=== PATIENT | female | born 1960 | race Caucasian/White ===

== ENCOUNTER 2021-01-02 15:15 | Observation (INO) | payer MEDICARE, MEDICAID, SELFPAY ==
[2021-01-02] VITALS (11 sets, daily range): BP systolic 108–154; BP diastolic 65–93; PULSE 72–98; RESP 16–20; TEMP 36.6–37.1; O2SAT 94–97; BMI 31.2; BMI 31.4
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
--- NOTE | 2021-01-02 16:19 | XR_ITS ---
WS: [id number] Portable AP upright chest, 01/02/2021 Clinical Data: chest pain Comparison: PA chest, 03/21/2011. Findings: No nodules, masses or effusions are seen. The heart is normal. The pulmonary vascularity is not increased. No pneumonia or pneumothorax is seen. There is minimal left apical scarring. Monitor leads are on the chest wall. Impression: Negative chest.
--- NOTE | 2021-01-02 16:40 | PC.NURSE ---
attempted IV x2. a second RN Mike attempted x 2 also without success. Club Concierge called to have ultrasound guided IV placed.
--- NOTE | 2021-01-02 16:41 | PC.NURSE ---
physician aware of no IV access at this time.
[2021-01-02 17:43] LABS: Basophils % 0.4 %; Eosinophils # 0.1 10^3/uL (0.0-0.8); Eosinophils % 0.6 %; Hematocrit 44.4 % (37.0-47.0); Lymphocytes # 2.6 10^3/uL (0.8-4.8); Lymphocytes % 26.3 %; Mean Corpuscular HGB Conc 31.5 g/dL (30.0-36.0); Mean Corpuscular Hemoglobin 27.6 pg (28.0-34.0); Mean Corpuscular Volume 87.4 fl (81-99); Mean Platelet Volume 9.8 fL (7.4-10.4); Monocytes # 0.6 10^3/uL (0.2-0.9); Monocytes % 5.9 %; Neutrophils # 6.49 10^3/uL (1.8-7.7); Neutrophils % 66.5 %; Nucleated Red Blood Cells % 0 %; Platelet Count 373 10^3/cmm (130-400); Red Blood Count 5.08 10^6/uL (4.1-5.3); White Blood Count 9.8 10^3/uL (4.0-10.0)
--- NOTE | 2021-01-02 18:00 | PC.NURSE ---
Dr Grullon and Optical Coating Technician in pt room; inserted ultrasound guided IV 18g to left upper arm
[2021-01-02 18:13] LABS: Troponin(5th) Baseline 7 ng/L (0-10)
--- NOTE | 2021-01-02 18:19 | ECG_ITS ---
[facility] Test Date: 2021-01-02 Pat Name: Sherita Chen Department: Room: Gender: Female Piercer: : 1960 Requested By: Salvatore Nelson Order Number: [id number] Santos MD: Suzanna Costello M.D. Measurements Intervals [place] Rate: 79 P: 65 ME: 132 QRS: 56 QRSD: 78 T: 65 QT: 399 QTc: 460 Interpretive Statements SINUS RHYTHM MINIMAL ST DEPRESSION [0.025+ mV ST DEPRESSION] Compared to ECG 01/02/2021 15:45:08 ST (T wave) deviation now present Sinus tachycardia no longer present Electronically Signed On 01-02-2021 19:46:14 CDT by Suzanna Costello M.D. [id number]
[2021-01-02 18:22] LABS: Alanine Aminotransferase 33 U/L (0-33); Albumin Level 3.9 g/dL (3.5-5.2); Alkaline Phosphatase 177 IU/L (35-105); Anion Gap 17.2 (5-19); Aspartate Amino Transferase 26 U/L (0-32); Blood Urea Nitrogen 9 mg/dL (8-23); Calcium 9.2 mg/dL (8.5-10.5); Carbon Dioxide 21 mmol/L (22-29); Chloride 103 mmol/L (98-107); Creatinine Clr Calc Pharmacy 86.4509; Globulin 2.8 g/dL (1.3-4.6); Glomerular Filtration Rate 101.3 mL/min (90-130); Glucose 86 mg/dL (65-115); Lipase 33 U/L (13-60); NT Pro B Type Natriuretic Pept 43 pg/mL (0-125); Osmolality Calculated 282 mOsm/kg (285-295); Potassium 4.2 mmol/L (3.5-5.1); Sodium 137 mmol/L (136-145); Total Bilirubin 0.2 mg/dL (0.15-1.2); Total Protein 6.7 g/dL (6.6-8.7)
--- NOTE | 2021-01-02 18:41 | PC.NURSE ---
patient has already taken 324mg asa today
[2021-01-02 19:57] LABS: Troponin 5 2HR 8.24 ng/L (0-10); Troponin 5 2HR Delta 1.24 ABS# (0-10)
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
[2021-01-02] MEDS: fentaNYL 50 mcg/mL INJ 2mL IVP (21:13)
[2021-01-02] MEDS: nitroglycerin 0.4 mg sublingual Tablet SUBLINGUAL (21:14)
--- NOTE | 2021-01-02 21:40 | PC.NURSE ---
2nd Nitro given. pt pain went down to 4 then back up again to 7.
--- NOTE | 2021-01-02 21:47 | PC.NURSE ---
report to Hope CORTEZ
--- NOTE | 2021-01-02 21:52 | PC.NURSE ---
patient improved with 2nd Nitro. states her pain is down to 2
--- NOTE | 2021-01-02 22:19 | ECG_ITS ---
[facility] Test Date: 2021-01-02 Pat Name: Sherita Chen Department: Room: Gender: Female Presser All Around: : 1960 Requested By: Salvatore Nelson Order Number: [id number] Santos MD: Suzanna Costello M.D. Measurements Intervals [place] Rate: 101 P: 66 [place]: 127 QRS: 36 QRSD: 85 T: 55 QT: 346 QTc: 450 Interpretive Statements SINUS TACHYCARDIA POSSIBLE LEFT ATRIAL ENLARGEMENT [-0.1mV P WAVE IN V1/V2] ABNORMAL RHYTHM ECG No previous ECG available for comparison Electronically Signed On 01-02-2021 19:44:24 CDT by Suzanna Costello M.D. [id number]
[2021-01-02] MEDS: enoxaparin 40 mg/0.4 mL Syringe SUBCUT (23:39)
[2021-01-02] MEDS: gabapentin 400 mg Capsule 800 MG PO (23:40)
[2021-01-02] MEDS: D5-NS 0.45% + KCL 20 mEq 20 MEQ/1,000 ML BAG 75 MEQ IV (23:43)
[2021-01-03] VITALS (11 sets, daily range): BP systolic 104–132; BP diastolic 67–86; PULSE 71–89; RESP 13–18; TEMP 36.6–37; O2SAT 92–96
--- NOTE | 2021-01-03 00:26 | PC.ADMIT ---
[id number] [facility] Admission Note: The patient,Sherita Chen,60 y/o, was given written information regarding hospital policies, unit procedures and contact persons. Patient's smoking status: . Vital Signs - 8 hr 01/02/21 17:30 01/02/21 20:40 01/02/21 21:13 Temperature Pulse Rate 86 85 Respiratory Rate 16 18 20 H Blood Pressure 126/80 154/93 Pulse Oximetry 95 96 97 01/02/21 21:14 01/02/21 21:30 01/02/21 21:53 Temperature Pulse Rate 96 92 92 Respiratory Rate 20 H 18 18 Blood Pressure 138/87 128/90 120/65 Pulse Oximetry 97 96 97 01/02/21 22:00 01/02/21 22:21 01/02/21 23:30 Temperature 98 F 98 F Pulse Rate 74 80 72 Respiratory Rate 17 17 Blood Pressure 108/71 132/73 Pulse Oximetry 94 94 01/03/21 00:22 Temperature Pulse Rate 77 Respiratory Rate Blood Pressure Pulse Oximetry 94
[2021-01-03 05:38] LABS: INR 1.09 (0.8-1.2)
[2021-01-03 05:39] LABS: Partial Thromboplastin Time 36.9 SECONDS (23.9-36.7)
--- NOTE | 2021-01-03 06:00 | USCV_ITS ---
Gustavo Sherita Age: 60 Gender: F : 1960 Exam Date: 01/03/2021 06:56 Ordering Phys: Richelle Zee MD Technologist: Exam Location: [facility] Indication: SOB BP: 114 / 67 HR: 66 Rhythm: Sinus Technical Quality: Adequate MEASUREMENTS (Male / Female) Normal Values 2D ECHO LV Diastolic Diameter PLAX 4.0 cm 4.2 - 5.9 / 3.9 - 5.3 cm LV Systolic Diameter PLAX 2.2 cm IVS Diastolic Thickness 1.1 cm 0.6 - 1.0 / 0.6 - 0.9 cm IVS Systolic Thickness 1.4 cm LVPW Diastolic Thickness 1.3 cm 0.6 - 1.0 / 0.6 - 0.9 cm LVPW Systolic Thickness 0.8 cm LVOT Diameter 2.0 cm LV Ejection Fraction 2D Teich 77.7 % LV Ejection Fraction MOD 2C 60.9 % LV Ejection Fraction 2C AL 61.8 % LA Diameter 3.3 cm LA Width 3.1 cm LA Height 4.5 cm RA Width 3.8 cm RA Height 3.7 cm DOPPLER AV Peak Velocity 103.0 cm/s LVOT Peak Velocity 83.0 cm/s AV Area Cont Eq vti 2.8 cm squared AV Area Cont Eq pk 2.6 cm squared MV Area PHT 5.0 cm squared Mitral E to A Ratio 0.8 MV E' Velocity 40.0 cm/s Mitral E to MV E' Ratio 12.1 Mitral E to LV E' Lateral Ratio 10.6 Mitral E to LV E' Septal Ratio 14.6 TR Peak Velocity 96.0 cm/s TR Peak Gradient 3.7 mmHg TV Peak E Velocity 51.0 cm/s Right Atrial Pressure 3.0 mmHg Pulmonary Artery Systolic Pressu 6.7 mmHg FINDINGS Left Ventricle Normal left ventricular cavity size. Normal left ventricular systolic function. No regional wall motion abnormalities. Left ventricular ejection fraction is estimated at 60 %. Grade I/IV diastolic dysfunction (abnormal relaxation filling pattern), normal to mildly elevated filling pressures. Right Ventricle The right ventricle is normal in size and function. Right Atrium The right atrium is normal in size. Left Atrium The left atrium is normal in size. Mitral Valve Structurally normal mitral valve without significant stenosis or prolapse. There is no mitral regurgitation. Aortic Valve Moderate aortic valve calcification. No aortic valve stenosis. No aortic valve regurgitation. Tricuspid Valve Mild tricuspid valve regurgitation. Pulmonic Valve Structurally normal pulmonic valve without significant stenosis. There is no pulmonic regurgitation. Pericardium Normal pericardium without effusion. Aorta Normal ascending aorta dimension. CONCLUSIONS 1-Normal left ventricular cavity size. Normal left ventricular systolic function. No regional wall motion abnormalities. Left ventricular ejection fraction is estimated at 60 %. Grade I/IV diastolic dysfunction (abnormal relaxation filling pattern), normal to mildly elevated filling pressures. 2-Moderate aortic valve calcification. No aortic valve stenosis. No aortic valve regurgitation. 3-There is no pericardial effusion. 4-Pulmonary artery systolic pressure is within normal limits. 5-Right atrial pressure is around 5 mm of mercury. 6-There are no prior echocardiogram studies to compare. Melissa Quijano MD (Electronically Signed) Final Date: 03 January 2021 19:02 S
--- NOTE | 2021-01-03 06:00 | ECG_ITS ---
[facility] Test Date: 2021-01-03 Pat Name: Sherita Chen Department: Room: 112 Gender: Female Transport Assistant: Chely Ravi : 1960 Requested By: Richelle Zee Order Number: [id number] Santos MD: DANYEL COX Interpretive Statements NAME OF STUDY: LEXISCAN SESTAMIBI STRESS TEST INDICATION: Chest Pain, NOTE: Please note that this is the electrocardiogram portion of the Lexiscan/Sestamibi stress test. The perfusion scan will be documented separately. DATA: Baseline heart rate was 75 beats per minute. Baseline blood pressure was 117/89 millimeters of mercury. Target heart rate was 158. Maximum heart rate achieved was 113. which was 71 % of the predicted target heart rate. Maximum blood pressure was 120/69 millimeters of mercury. The reason for ending the test was completion of the protocol. The patient did not experience any symptoms. ELECTROCARDIOGRAM: BASELINE: Sinus rhythm. Normal axis. Otherwise, no ST-T changes suggestive of ischemia noted. No arrhythmia noted. EXERCISE: After Lexiscan injection, no ST-T changes suggestive of ischemic noted. No arrhythmia noted. CONCLUSION: Please note due to baseline abnormality of the EKG specificity and sensitivity of the EKG portion of LexiScan MIBI stress test will be low 1. EKG not suggestive of ischemia 2. Lexiscan injection unremarkable. 3. Perfusion scan will be documented separately. Electronically Signed On 01-22-2021 19:08:09 CDT by DANYEL COX [id number]
[2021-01-03 06:02] LABS: Chol HDL Ratio 4.29 mg/dL (0.0-4.40); Cholesterol 176 mg/dL (0-200); HDL Cholesterol 41 mg/dL (60-100); LDL Cholesterol Calculated 116 mg/dL (50-129); LDL HDL Ratio 2.83 RATIO (0.00-3.22); NT Pro B Type Natriuretic Pept 21 pg/mL (0-125); Triglycerides 96 mg/dL (0-150)
--- NOTE | 2021-01-03 06:19 | PC.NURSE ---
patient has not had c/o chest pain this shift, patient is in SR, VS WNL.
[2021-01-03] MEDS: regadenoson 0.4 Mg/5 ml Syringe IVP (08:06)
--- NOTE | 2021-01-03 09:40 | ECG_ITS ---
[facility] Test Date: 2021-01-03 Pat Name: Sherita Chen Department: Room: 112 Gender: Female Multimedia Editor: : 1960 Requested By: Jan Munoz Order Number: [id number] Santos MD: Sally Fatima M.D. Measurements Intervals [place] Rate: 77 P: 60 TN: 128 QRS: 30 QRSD: 77 T: 42 QT: 398 QTc: 452 Interpretive Statements SINUS RHYTHM Compared to ECG 01/02/2021 19:06:16 ST (T wave) deviation no longer present Electronically Signed On 01-04-2021 9:04:34 CDT by Sally Fatima M.D. [id number]
[2021-01-03] MEDS: gabapentin 400 mg Capsule 800 MG PO ×3 (09:43→20:47)
[2021-01-03] MEDS: aspirin 81 mg EC Tablet PO (09:43)
[2021-01-03] MEDS: pantoprazole DR 40 mg Tablet PO (09:43)
[2021-01-03] MEDS: BuSPIRONE 10 mg Tablet PO ×2 (09:43→18:03)
[2021-01-03] MEDS: docusate sodium 100 mg Capsule PO ×2 (09:43→18:03)
[2021-01-03] MEDS: lisinopril 20 mg Tablet PO (10:06)
--- NOTE | 2021-01-03 10:27 | PC.NURSE ---
Pt endorsed chest discomfort shortly after physician left room this morning. Pt rates pain at a 6/10. Ekg was obtained and appeared to be normal sinus rhythm. Pt chest pain has subsided now.
--- NOTE | 2021-01-03 10:37 | PC.CHAP ---
Pastoral Care Encounter/Spiritual Assessment Type of Contact [] Declined stone decorator visit [] Patient/Family/Request visit [] Outpatient visit [] Follow-up visit [] Physician referral [] Code/Alert [x] Routine visit [] Staff referral [] Actively dying [] Patient sleeping [] Family support [] [] Out of room [] Palliative care [] [x] Receiving care in room [] Pre-surgical visit [] Trauma [x] Long length of stay [] ICU visit [] Other: Relational/Emotional Strength [x] Patient feels connected with others/family/visitors/staff [] Distress [] Loneliness/isolation [] Abandonment Spirituality of Patient [x] Person of Kimberlee [] Attends Protestant of their Kimberlee [x] Believes in Prayer [] Reads Bible or Faith materials [] There are Spiritual issues to be addressed Phlebotomist Supervisor/Instructor Interventions [x] Prayer [x] Active listening [x] Non-anxious presence [x] Spiritual/emotional support [] Crisis/trauma care [x] Spiritual counseling [] Bereavement support [] Provided bereavement packet [] Provided Bible/devotional materials [] Provided toy/stuffed animal, coloring book to patient or family member [] Provided Communion [] Anointing/Firestone [] Salvation [x] Completed spiritual assessment [] Other: Impact on Illness or Injury [] Angry [] Fearful [xx] Anxious [] Often cries [] Exhaustion [x] Unable to work [] Unable to attend adventist [] Unable to walk/stand [] Unable to read [] Unable to drive [] Unable to eat/drink [] Unable to sleep [] Unable to be with family [] Patient intubated [] Other: Summary pain around heart waiting on tests and dortors report she angie go home and have famuly care at this time and when she goes home Time spent with patient 10 mins
--- NOTE | 2021-01-03 12:39 | P.PN_ITS ---
Subjective Subjective: Interval history: Sherita was admitted last night's. She had no chest discomfort when I talked with her but did shortly after her stress test. I reviewed her history with her and she has chest discomfort she describes as pressure substernal sometimes associated with exertion responsive to nitroglycerin lasting less than 30 minutes. She occasionally has some nausea. She did not have any kind of troponin elevation or significant EKG changes on presentation. Medications: Reviewed: Yes Vitals/I&O/Wt Last Vital Signs Temp 98.6 F 01/03/21 08:00 Pulse 89 01/03/21 08:07 Resp 15 01/03/21 08:00 BP 104/69 01/03/21 08:07 Pulse Ox 95 01/03/21 08:00 Weight last 48 hrs Weight 71.894 kg Weight 72.892 kg Weight 72.575 kg Physical Exam 2 Narrative: EXAM NARRATIVE: General exam no apparent distress Neck is supple Cardiovascular regular rate and rhythm without murmur Lungs clear Abdomen is soft, positive bowel sounds Extremities no cyanosis clubbing or edema Data : 01/02/21 17:27 01/02/21 17:27 A&P Assessment and plan (1) Chest pain: Concerning for possible angina. She has had some exertional quality, responsive to nitroglycerin. Nuclear stress test has been completed but not yet read. She continued to have some discomfort following the stress test. Cardiology will be consulted for her recurrent discomfort Note the troponins, EKGs were overall benign. Echocardiogram is pending No significant history of recent reflux. Continue aspirin At this point continue ALEXI inhibitor started last week Lovenox for DVT prophylaxis Status: Acute (2) Hypertension: Started on antihypertensive medication in the form of lisinopril last week Status: Chronic (3) Nicotine dependence, cigarettes, with other nicotine-induced disorders: Encourage cessation Status: Acute Additional A&P Information Neuropathy, continue Neurontin History of chronic nausea Fatigue Full code Lovenox for DVT prophylaxis Attestations Medical Necessity Statement*: Needs continued hospitalization, for evaluation of chest discomfort. Coding Level of Care Code Acute Tow Truck Operator for Ashley Hennessy Diagnoses Chest pain R07.9 Hypertension I10 Nicotine dependence, cigarettes, with other nicotine-induced disorders F17.218
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
[2021-01-03] MEDS: clopidogrel 300 mg Tablet PO (18:03)
--- NOTE | 2021-01-03 22:34 | NMCV_ITS ---
NM meme perf SPECT r/s* [id number] Sherita Chen Age: 60 Gender: F : 1960 Exam Date: 01/03/2021 07:11 Ordering Phys: Richelle Zee MD Technologist: SAMEERA Reese Exam Location: [facility] Indications: CHEST PAIN STRESS TEST Please see separate stress test report in [facility] for full findings IMAGE PROTOCOL Rest/Stress 1 Lexiscan Day Radiopharmaceutical Dose (mCi) Administration Site Administered by Rest: Tc-99m 10.9 IV SAMEERA Mcneil Sestamibi Stress:Tc-99m 32.8 IV SAMEERA Mcneil Sestamibi Rest: 03-Jan-2021 60 Discovery 630 Stress: 03-Jan-2021 30 Discovery 630 0.4mg Lexiscan. Images obtained in supine and prone position. SPECT RESULTS Technical Quality: Excellent Raw Data Analysis: Image Corrections: Summed Stress Score: 0 Summed Rest Score: 0 Summed Difference Score: 0 PERFUSION FINDINGS Small area of fixed perfusion defect noted in basal to mid inferior wall on the rest images which improved over stress images suggestive of artifact. Small area of patchy decreased tracer uptake suggestive of reversibility noted in distal and basal inferior and inferolateral wall suggestive of possible ischemia in RCA territory. FUNCTIONAL RESULTS (calculated via Gated SPECT) Stress Image LV EF (%): 66 Stress EDV (mL):70 TID: 1.04 Stress ESV (mL):24 Rest Image LV EF (%): 66 FUNCTIONAL FINDINGS: There is normal left ventricular systolic function. IMPRESSIONS Small area of patchy reversibility noted in basal inferior and inferolateral wall along with somewhat in the distal inferior wall suggestive of possible lesion in the RCA territory. EKG segment will be documented separately. Melissa Quijano MD (Electronically Signed) Final Date: 03 January 2021 13:21 S
[2021-01-04] VITALS (59 sets, daily range): BP systolic 105–129; BP diastolic 60–82; PULSE 72–104; RESP 12–25; O2SAT 88–97
[2021-01-04] MEDS: sodium chloride 0.9% 1,000 ML 50 ML IV (04:19)
[2021-01-04 04:59] LABS: Basophils % 0.5 %; Eosinophils # 0.1 10^3/uL (0.0-0.8); Eosinophils % 1.3 %; Hematocrit 43.8 % (37.0-47.0); Hemoglobin 13.7 g/dL (11.5-15.3); Lymphocytes # 3.2 10^3/uL (0.8-4.8); Mean Corpuscular HGB Conc 31.3 g/dL (30.0-36.0); Mean Corpuscular Hemoglobin 28.7 pg (28.0-34.0); Mean Corpuscular Volume 91.6 fl (81-99); Mean Platelet Volume 9.9 fL (7.4-10.4); Monocytes # 0.6 10^3/uL (0.2-0.9); Monocytes % 6.3 %; Neutrophils # 4.89 10^3/uL (1.8-7.7); Neutrophils % 55.6 %; Nucleated Red Blood Cells % 0 %; Platelet Count 389 10^3/cmm (130-400); Red Blood Count 4.78 10^6/uL (4.1-5.3); White Blood Count 8.8 10^3/uL (4.0-10.0)
[2021-01-04 05:26] LABS: Anion Gap 17.3 (5-19); Blood Urea Nitrogen 14 mg/dL (8-23); Calcium 9.1 mg/dL (8.5-10.5); Carbon Dioxide 20 mmol/L (22-29); Chloride 104 mmol/L (98-107); Glomerular Filtration Rate 84.8 mL/min (90-130); Glucose 105 mg/dL (65-115); Osmolality Calculated 285 mOsm/kg (285-295); Potassium 4.3 mmol/L (3.5-5.1); Sodium 137 mmol/L (136-145)
[2021-01-04] MEDS: diphenhydrAMINE 50 mg Capsule PO (05:47)
--- NOTE | 2021-01-04 07:00 | XACV_ITS ---
Exam Room: [facility] Ht: 152 cm Wt: 72 kg BSA: 1.77 m2 Gender: Female : 1960 Any Known Allergies: Morphine Exam Priority: Routine Procedure(s): Procedure Description: Diagnostic procedure Procedure Description: Left Heart Catheterization Procedure Description: Coronary Angiography Diagnostic Cath Status: Urgent Diagnostic Findings * Left Main has no disease. * Circumflex has no disease. * Right Coronary Artery has no disease. * Proximal Left Anterior Descending to Mid Left Anterior Descending: luminal irregularities 20% stenosis, SHAHLA: 3 flow. * Coronary angiography shows right dominance. Conclusions 1. There is luminal irregularities coronary artery disease with one vessel disease. Recommendations * Continue current medical management and risk factor modification. Pressures Phase:Rest AO : 134 / 37 ( 68 ) @ 6:59:00 AM LV : 127 / -5 / 16 @ 6:58:00 AM Clinical Evaluation EBL: 5mL-10mL Procedural Details Procedure Consent Obtained. Pre-Procedure Time Out. Identified patient by full name and date of as verbalized by the patient/guarantor. Does the consent match the physician's order: Yes. Accurate & Complete Informed Consent: Yes. Inpatient/Outpatient History & Physical on Chart: Yes. If H&P is completed, is and addenduem needed: No. Visualize and Verify Site with Patient/Guarantor: N/A. Relevant Radiology Images available: Yes. The risks, benefits, and alternatives of sedation and/or procedure were discussed by physician. The patient agrees to continue. Procedure started. [facility] Clinical Fraility Score: 3: Managing Well. Human Resources Operations Specialist Indications: ACS > 24 hours. Chest Pain Symptom Assessment: Typical Angina Symptoms. Cardiovascular Instability: No. Correct patient, site and procedure confirmed by cath team. PERRLA. Strong, equal hand remote sensing technologist bilaterally. Lungs clear x 5 lobes. IV Site on Arrival: 20 gauge in the left forearm. IV Fluids: 0.9% NaCl at KVO. 200 mL infused prior to dye lab technician. Pre Procedural Pulses: bilateral dorsalis pedis was 2+. Pre Procedural Pulses: bilateral posterior tibial was 2+. Pre Procedural Pulses: bilateral radial was 2+. Oxygen started at 2liters/min via nasal canula. right groin was prepped with chloroprep then draped in the usual sterile fashion. right radial was prepped with chloroprep then draped in the usual sterile fashion. Baseline sample Acquired. HR: 82 BPM. Physician notified. Patient's family unavailable due to current Covid restrictions. Equipment: 6F - Radial. Cardiac Cath Pack. ACIST Manifold Kit Model BT 2000. Heparinized Saline (2 units/mL), 1000 mL bag. Physician arrived. Physician scrubbed in. Immediate Pre-Procedure Time Out. Correct Patient: Yes; Correct Procedure: Yes; Correct Site: Yes; Correct Patient Position: Yes; Correct Supplies: Yes; Dried Flammable Prep: Yes; Blood Products Available: N/A. Linda Devries RN circulating with Sylvie Mo RN Dave Dickson, CPT, RT scrubbing with Allyson No, RT(R). Lidocaine 1% infiltrated to the right radial. Arterial access obtained. A 5 czech Geovanny catheter in over the exchange wire. Multiple views taken of left coronary artery. Catheter redirected to the RCA. Multiple views taken of right coronary artery. EDP Sample taken: LV 127/-6,16; HR: 84 BPM; SpO2: 98%. Pullback taken: LV Off; AO Off; Mean: , Peak to Peak: , SEP: ; HR: 86 BPM; SpO2: 98%. Catheter removed over the exchange wire. Physician review of cine films. Physician scrubbed out. TR band placed. Hemostasis obtained. Post Procedure: Pulses reassessed and unchanged. PERRLA. Strong, equal hand remote sensing technologist bilaterally. No VTE prophylaxis required. Medication's Wasted: Lidocaine 1% = 16 mL. Medication's Wasted: Nitro = 49.8 mg. Medication's Wasted: Heparin = 1000 Units. Total IV fluids: 61 mL. A TR Band was successful obtaining hemostatsis at the Right Radial artery insertion site. Post-op diagnosis: Non obstructive CAD. Complications: none. Estimated blood loss: 5mL-10mL. Procedure completed. Patient transferred by wheelchair to 1st floor. Vital chart was stopped. Access Site Site: Right Radial artery Sheath Size: 6 Fr Hemostasis Method: TR Band Hemostasis Success: Successful Procedure Medications Start: 7:44 AM Stop: 7:44 AM Medication: Versed Amount: 1 mg Route: I.V. I, the attending physician, have reviewed and verified all procedure medications. Yes, all medications given per verbal order History/Risk Factors Hypertension: Yes Dyslipidemia: No Peripheral Arterial Disease (PAD): No Myocardial Infarction (NC): No Obesity: No Renal Disease: No Prior Interventions PCI: No CABG: No Valve Surgery: No Report Signatures Finalized by Melissa Quijano MD on 01/20/2021 10:18 PM
--- NOTE | 2021-01-04 08:30 | PC.NURSE ---
Received patient back from Optical Glass Inspector, report given by Linda CORTEZ. Patient is A & O, TR band on right wrist. No Hematoma, pain, tingling or numbness to hand. VS stable. Nurse to continue to monitor.
[2021-01-04] MEDS: docusate sodium 100 mg Capsule PO (08:50)
[2021-01-04] MEDS: pantoprazole DR 40 mg Tablet PO (08:50)
[2021-01-04] MEDS: gabapentin 400 mg Capsule 800 MG PO (08:50)
[2021-01-04] MEDS: lisinopril 20 mg Tablet PO (08:50)
[2021-01-04] MEDS: BuSPIRONE 10 mg Tablet PO (08:51)
[2021-01-04] MEDS: aspirin 81 mg EC Tablet PO (08:51)
--- NOTE | 2021-01-04 08:57 | W.PM.OPSUD ---
Surgery/Procedure H&P Update DATE OF PROCEDURE: January 04, 2021 DATE H&P PERFORMED: 01/03/21 H&P UPDATE INFORMATION: I have reviewed H&P completed within last 30 days, I have examined patient prior to procedure and No changes to prior documentation PREOP DIAGNOSIS: Chest pain/abnormal stress test PATIENT REASSESSED PRIOR TO SEDATION, WITH NO CHANGE NOTED: Yes PHYSICAL EXAM: alert, oriented x 3 and clear to auscultation bilaterally AIRWAY EVAL/ANESTHESIA PLAN: ASA II, Risks, benefits & alternatives of sedation and/or procedure discussed and Patient agrees to continue as planned
--- NOTE | 2021-01-04 08:58 | PM.PN ---
Subjective Subjective: Interval history: S/p left heart cath showing mild disease in mid LAD otherwise normal vessels. Medications: Reviewed: Yes Medication Review Details: I personally reviewed home medication list and medications received day of admission thus far. Vitals/I&O/Wt Last Vital Signs Temp 98.0 F 01/03/21 20:00 Pulse 77 01/04/21 06:00 Resp 18 01/04/21 04:00 BP 118/60 01/04/21 04:00 Pulse Ox 95 01/04/21 04:00 01/03/21 01/04/21 01/04/21 22:59 06:59 14:59 Intake Total 360 / 1720 360 / 2080 Output Total 500 / 1500 Balance 360 / 720 -140 / 580 Weight last 48 hrs Weight 158 lb 8 oz Weight 160 lb 11.2 oz Weight 160 lb Physical Exam Narrative: EXAM NARRATIVE: GENERAL: Patient is alert, awake and oriented x3. NECK: No jugular vein distension. HEENT: No cyanosis. No icterus. No pallor. HEART: Regular S1 and S2. No murmur, rub or gallop. LUNGS: Clear to auscultate bilaterally. ABDOMEN: Soft, nontender and nondistended. Positive bowel sounds. No guarding, rebound or tenderness. CENTRAL NERVOUS SYSTEM: Grossly nonfocal. EXTREMITIES: Lower extremities without edema bilaterally. Const: COMMON NORMALS: alert Resp: COMMON NORMALS: clear to auscultation bilaterally AUSCULTATION: clear to auscultation bilaterally Neuro: SENSORIUM/ORIENTATION: Yes alert Data : 01/04/21 04:41 01/04/21 04:41 A&P Assessment and plan (1) Chest pain: Status post left heart cath showing 20% disease otherwise normal rest of the vessels. Most likely noncardiac in origin Status: Acute Qualifiers: Chest pain type: precordial pain Qualified Code(s): R07.2 - Precordial pain (2) Hypertension: Well-controlled continue medicine Status: Chronic Qualifiers: Hypertension type: essential hypertension Qualified Code(s): I10 - Essential (primary) hypertension (3) Nicotine dependence, cigarettes, with other nicotine-induced disorders: Advised quitting smoking. Status: Acute Attestations Medical Necessity Statement*: from a cardiovascular perspective patient can be discharged home Coding Level of Care Code Established Pt Acute Certified Medical Dosimetrist for Chg Fwd Patient Type Established History Expanded Problem Focused Exam Expanded Problem Focused Medical Decision Making Moderate Complexity Diagnoses Chest pain R07.2 Chest pain type: precordial pain Hypertension I10 Hypertension type: essential hypertension Nicotine dependence, cigarettes, with other nicotine-induced disorders F17.218
--- NOTE | 2021-01-04 10:42 | PM.DCS ---
Discharge Providers Date of Admission: 01/02/21 19:54 Date of Discharge: January 04, 2021 Attending Provider at Admission: Richelle Zee MD Attending Provider at Discharge: Jan Dominguez MD Primary Care Provider: Jamal Mina Diagnoses at Discharge Discharge Diagnosis (1) Chest pain: Status: Acute Qualifiers: Chest pain type: precordial pain Qualified Code(s): R07.2 - Precordial pain (2) Hypertension: Status: Chronic Qualifiers: Hypertension type: essential hypertension Qualified Code(s): I10 - Essential (primary) hypertension (3) Nicotine dependence, cigarettes, with other nicotine-induced disorders: Status: Acute Reason for Visit Reason for Visit: CHEST PAIN Hospital Course Hospital Course Sherita presented to the hospital with substernal chest discomfort she described as pressure. Troponin and EKG were both negative. Nuclear stress testing demonstrated some reversible abnormality in the inferior wall. Secondary to this concern cardiology was consulted and she was taken for angiogram. No vital signs were abnormal, and oxygenation was excellent. Sherita reports she is doing okay this morning. She underwent her angiogram and no significant flow-limiting disease is noted. Her chest discomfort is thought to be noncardiac. She was found to have 20% narrowing in the LAD. After appropriate observation. Following angiogram she was discharged home on current medications. She will follow-up with cardiology for post cath next week and her primary care provider in 3 to 5 days. Overall her LDL was measured at 116 and with mild coronary disease statin will be initiated.. I will allow her to discuss this with her primary care provider. Physical Exam Narrative: EXAM NARRATIVE: General exam no apparent distress Neck is supple Cardiovascular regular rate and rhythm Lungs clear Abdomen is soft, positive bowel sounds Extremities no cyanosis clubbing or edema. Discharge Data Data Completed and Pending: Completed Studies During Hospitalization Category Date Time Status Sestamibi Stress Test Request Routi ne Exams 01/03/21 06:00 Draft XR chest 1V kennedy ble [id number] Stat Exams 01/02/21 16:19 Completed NM meme perf SPECT r/s* [id number] Routin e Nuc Med 01/03/21 22:34 Completed CV. echo complete * [id number] Routine Ultrasound 01/03/21 06:00 Completed Pending at discharge Category Date Time Status [employer]CTOR request for service Routin e Exams 01/04/21 07:00 Taken Labs from last 24 hours 01/04/21 01/04/21 04:41 04:41 WBC 8.8 RBC 4.78 Hgb 13.7 Hct 43.8 MCV 91.6 MCH 28.7 MCHC 31.3 RDW 14.0 Plt Count 389 MPV 9.9 Neut % (Auto) 55.6 Lymph % (Auto) 36.0 [place] % (Auto) 6.3 Eos % (Auto) 1.3 Baso % (Auto) 0.5 Neut # (Auto) 4.89 Lymph # (Auto) 3.2 [place] # (Auto) 0.6 Eos # (Auto) 0.1 Baso # (Auto) 0.0 Nucleated RBC % (a uto) 0 Nucleated RBCs # 0.0 Sodium 137 Potassium 4.3 Chloride 104 Carbon Dioxide 20 L Anion Gap 17.3 BUN 14 Creatinine 0.7 GFR Calculation 84.8 L Glucose 105 Calculated Osmolal ity 285 Calcium 9.1 Vitals: Last Vital Signs Temp 98.0 F 01/03/21 20:00 Pulse 72 01/04/21 10:19 Resp 18 01/04/21 04:00 BP 118/60 01/04/21 04:00 Pulse Ox 95 01/04/21 10:19 Discharge Plan Discharge Patient Disposition: Home Condition: Stable Prescriptions: New pantoprazole 40 mg Tablet,Delayed Release (Dr/Ec) 40 mg PO DAILY Qty: 30 RF: 0 atorvastatin [Lipitor] 20 mg tablet 20 mg PO DAILY Qty: 30 RF: 0 Continued Excedrin Tension Headache 500-65 mg Tablet 1 tab PO Q4H PRN (Reason: HEADACHES) RF: 0 lisinopril 20 mg tablet 20 mg PO DAILY RF: 0 Aspir-81 81 mg Tablet,Delayed Release (Dr/Ec) 81 mg PO DAILY RF: 0 gabapentin 800 mg tablet 800 mg PO TID RF: 0 Discontinued nitroglycerin 0.4 mg tablet, sublingual 0.4 mg sublingual Q5M PRN (Reason: Chest Pain) RF: 0 Discharge Orders: Discharge Order (Routine); Ordered 01/04/21 Ordered By: Jan Dominguez Referrals: Jamal Mina [Primary Care Provider] - 4-7 days Paz Cochran FNP [Nurse Practitioner] - 1 week Discharge Diet: Cardiac Discharge Activity: Increase activity as tolerated Patient Instructions: Pantoprazole (By mouth), Left Heart Catheterization (DC), Opioid Safety Activity Restrictions/Additional Instructions: Take all medicine as prescribed Follow-up with primary care provider Discharged after appropriate observation. Following angiogram Discharge Attestations Time Spent in Discharge Care*: greater than 30 min Quality Metrics Clinical Quality Measures During this hospital stay, did patient experience: None Coding Level of Care Code Acute Chg FW DC note Diagnoses Chest pain R07.2 Chest pain type: precordial pain Hypertension I10 Hypertension type: essential hypertension Nicotine dependence, cigarettes, with other nicotine-induced disorders F17.218
--- NOTE | 2021-01-04 12:22 | PC.NURSE ---
Discharge Note Patient discharged to home via private vehicle accompanied by grand daughter. A& O, no C/O of pain. Incision site has no hematoma present, swelling, redness or tingling. Discharge instructions reviewed with patient and/or direct sales representative. Mobile pharmacy medications and/or prescriptions provided. Belongings/home medications returned. Medication, diet, and follow up appointments explained. patient verbalizes understanding.
== END 2021-01-04 12:26 | disposition home or self-care (01) ==
LOC: ER 18:00 → CSU 20:24
PROVIDERS: Internal Medicine Cardiovascular Disease; Admitting Provider Hospitalist; Emergency Provider Emergency Medicine; PCP Nurse Practitioner Family; Visit Provider Internal Medicine
DX: R07.2 Precordial pain (principal); I10 Essential (primary) hypertension; F17.218 Nicotine dependence, cigarettes, with other nicotine-induced disorders; Z79.82 Long term (current) use of aspirin; Z82.49 Family history of ischemic heart disease and other diseases of the circulatory system
CPT/HCPCS: 36415; 71045; 78452; 80048; 80053; 80061; 83690; 83880; 84484; 85025; 85610; 85730; 93005; 93017; 93306; 93452; 96361; 96372; 96374; 99285; A9500; C1769; C1887; C1894; G0378; J1644; J1650; J2250; J2785; J3010; J3490; J7030; Q0163; Q9967